=== PATIENT | female | born 2000 | race Caucasian/White ===

== ENCOUNTER 2019-03-27 20:50 | Emergency (ER) | payer SELFPAY ==
[~2019-03-27] VITALS: Ht 160 cm; Wt 78.2 kg
[2019-03-27 20:58] VITALS: BP 150/74; PULSE 83; RESP 18; Ht 160 cm; Wt 78.2 kg
== END 2019-03-27 23:28 | disposition left against medical advice (07) ==
LOC: FTE 20:50
DX: Z53.21 Procedure and treatment not carried out due to patient leaving prior to being seen by health care provider (principal)